=== PATIENT | male | born 1975 | race Caucasian/White ===

== ENCOUNTER 2020-10-16 13:45 | Emergency (ER) | payer BC, SELFPAY ==
--- NOTE | ~2020-10-16 | XR_ITS ---
XR ankle RT min 3V DATE: 10/16/2020 14:24 INDICATION: Right ankle pain for several weeks TECHNIQUE: 4 views COMPARISON: None FINDINGS: No fracture or dislocation of the ankle or disruption of the ankle mortise. No periosteal r eaction or bone destruction. IMPRESSION: No fracture or dislocation Reviewed, dictated and finalized at location A. IMPRESSION: No fracture or dislocation
[2020-10-16 13:58] VITALS: BP 132/78; PULSE 61; RESP 18; TEMP 36.8; O2SAT 100
--- NOTE | 2020-10-16 14:10 | ED.LOWEXIN ---
HPI - Extremity Injury (Lower) General Chief Complaint: Extremity Injury, Lower Stated Complaint: right ankle pain Time Seen by Provider: 10/16/20 14:10 Source: patient and family Mode of arrival: ambulatory History of Present Illness HPI Narrative: right ankle pain Related Data Home Medications Medication Instructions Recorded Confirmed adalimumab [Humira] 40 mg SUBCUT ONCE 10/16/20 10/16/20 Allergies Allergy/AdvReac Type Severity Reaction Status Date / Time No Known Allergies Allergy Verified 10/16/20 14:20 Review of Systems Review of Systems: Narrative: CONSTITUTIONAL: Denies fever, chills, or sweats. EYES: Denies visual changes, redness, or discharge. ENT: Denies rhinorrhea, congestion, sore throat, or otalgia. CARDIOVASCULAR: Denies chest pain, palpitations, or edema. RESPIRATORY: Denies cough or dyspnea. GASTROINTESTINAL: Denies abdominal pain, nausea, vomiting, or diarrhea. GENITOURINARY: Denies dysuria or hematuria. SKIN: Denies rash or itching. MUSCULOSKELETAL: Denies back pain, joint pain, or myalgia. NEUROLOGIC: Denies headache, numbness, or weakness. PSYCHIATRIC: Denies anxiety or depression. PMFSH Comments At time of signature, agree with nursing past medical, surgical, social and family history. There is no relevant family history pertinent to the presenting complaint Exam Narrative: Exam Narrative: GENERAL: Well-appearing, well-nourished, and in no acute distress. HEAD: Normocephalic, atraumatic. EYES: PERRLA and EOMI. ENT: Nares clear, no rhinorrhea or epistaxis. Mucous membranes moist. NECK: Supple. CHEST: Clear to auscultation. No respiratory distress. HEART: Regular rate and rhythm. No murmur heard. Normal peripheral pulses. ABDOMEN: Soft, nontender, nondistended, normal active bowel sounds. EXTREMITIES: Normal range of motion. No edema. ANKLE EXAM SKIN INTACT. NORMAL DP PULSE, NORMAL CAP REFILL. NORMAL SENSATION. SKIN: Warm, dry, no rash. NEURO: No focal deficits. Alert and oriented x3. Keo Coma Scale Eye Opening: Spontaneous 4 Keo Coma Scale Motor: Obeys Commands 6 Keo Coma Scale Verbal: Oriented 5 Keo Coma Scale Total 15 Course Vital Signs Vital signs: Vital Signs Temperature 36.8 C 10/16/20 13:58 Pulse Rate 61 10/16/20 13:58 Respiratory Rate 18 10/16/20 13:58 Blood Pressure 132/78 10/16/20 13:58 Pulse Oximetry 100 10/16/20 13:58 Temperature 36.8 C 10/16/20 13:58 Pulse Rate 61 10/16/20 13:58 Respiratory Rate 18 10/16/20 13:58 Blood Pressure 132/78 10/16/20 13:58 Pulse Oximetry 100 10/16/20 13:58 Please LEONID schedule a followup visit with your personal physician for further evaluation and treatment. Including recheck and discussion of your blood pressure. If your symptoms persist, change or worsen significantly before you can contact your personal physician then please, without delay, go to the emergency department for further evaluation MDM - Extremity Injury (Lower) Differential Diagnosis Differential diagnosis: Likely ankle sprain and strain, acute internal derangement of knee, fracture of femur, fracture of hip, fracture of toe and ankle fracture Lab Data Attestation: I reviewed the patient's lab results. Critical Care Time Critical Care Time Critical Care Time: No Discharge Plan Discharge Clinical Impression: Ankle sprain and strain Patient Disposition: Home, Self-Care Condition: Stable Instructions: Antibiotic Form, Ankle Sprain (ED), Ankle Sprain (DC) Additional Instructions: Ice to the area 20-30 minutes 4-6 times a day Elevate above heart Elastic wrap or orthopedic splint as directed for comfort for the next 5-7 days Tylenol for lesser pain Ibuprofen regularly for the next 2-3 days for the inflammation Follow-up with PCP if further problems or concerns -If you have any worsening of symptoms or any other concerns please go to the ED immediately. Prescriptions: No Action Humira 40 mg/0.8
== END 2020-10-16 14:50 | disposition home or self-care (01) ==
PROVIDERS: Emergency Provider Nurse Practitioner Family; PCP Internal Medicine
DX: S93.401A Sprain of unspecified ligament of right ankle, initial encounter (principal); S96.911A Strain of unspecified muscle and tendon at ankle and foot level, right foot, initial encounter; X58.XXXA Exposure to other specified factors, initial encounter; Z85.828 Personal history of other malignant neoplasm of skin
CPT/HCPCS: 73610; 99213; G0463

== ENCOUNTER 2023-03-10 14:21 | Emergency (ER) | payer BC, SELFPAY ==
--- NOTE | ~2023-03-10 | XR_ITS ---
EXAM: XR foot RT min 3V DATE: 03/10/2023 15:00 HISTORY: DROPPED A 30 LB WT. ONTOP OFF RT FOOT FEW DAYS AGO. . COMPARISON: None available. FINDINGS: Normal mineralization. Comminuted fracture of the right second metatarsal shaft, with 3 mm dorsal displacement and 15 degrees plantar angulation. No lytic or blastic lesion. Degenerative kovacs ge at the tibiotalar joint. Plantar and Achilles enthesopathy. No erosion or periosteal change. Foref oot soft tissue swelling. IMPRESSION: Mildly displaced and angulated, comminuted fracture of the right second metatarsal shaft. Reviewed, dictated and finalized at location K. DESK REPRESENTATIVE IMPRESSION: Mildly displaced and angulated, comminuted fracture of the right se cond metatarsal shaft.
[2023-03-10 14:40] VITALS: BP 131/81; PULSE 77; RESP 18; TEMP 36.9; O2SAT 99
--- NOTE | 2023-03-10 14:49 | ED.LOWEXIN ---
HPI - Extremity Injury (Lower) General Chief Complaint: Extremity Injury, Lower Stated Complaint: rt foot pain History of Present Illness HPI Narrative: PATIENT PRESENTS WITH RIGHT FOOT PAIN 3 DAYS AGO PATIENT DROPPED A WEIGHT ON HIS FOOT SWOLLEN AND DISCOLORED NO DEFORMITY NOTED NO OPEN AREAS NOTED Related Data Home Medications Medication Instructions Recorded Confirmed adalimumab 40 mg/0.8 mL See Rx Instructions .Route .COMPLEX 10/16/20 03/10/23 subcutaneous syringe kit (Humira) Allergies Allergy/AdvReac Type Severity Reaction Status Date / Time No Known Allergies Allergy Verified 03/10/23 14:47 Review of Systems Review of Systems: CONSTITUTIONAL: DENIES FEVER, CHILLS, OR SWEATS. EYES: DENIES VISUAL CHANGES, REDNESS, OR DISCHARGE. ENT: DENIES RHINORRHEA, CONGESTION, SORE THROAT, OR OTALGIA. CARDIOVASCULAR: DENIES CHEST PAIN, PALPITATIONS, OR EDEMA. RESPIRATORY: DENIES COUGH OR DYSPNEA. GASTROINTESTINAL: DENIES ABDOMINAL PAIN, NAUSEA, VOMITING, OR DIARRHEA. GENITOURINARY: DENIES DYSURIA OR HEMATURIA. SKIN: DENIES RASH OR ITCHING. MUSCULOSKELETAL: DENIES BACK PAIN, JOINT PAIN, OR MYALGIA. NEUROLOGIC: DENIES HEADACHE, NUMBNESS, OR WEAKNESS. PSYCHIATRIC: DENIES ANXIETY OR DEPRESSION. PMFSH Comments AT TIME OF SIGNATURE, AGREE WITH NURSING PAST MEDICAL, SURGICAL, SOCIAL AND FAMILY HISTORY. THERE IS NO RELEVANT FAMILY HISTORY PERTINENT TO THE PRESENTING COMPLAINT Exam Const: Other: GENERAL: WELL-APPEARING, WELL-NOURISHED, AND IN NO ACUTE DISTRESS. HEAD: NORMOCEPHALIC, ATRAUMATIC. EYES: PERRLA AND EOMI. ENT: NARES CLEAR, NO RHINORRHEA OR EPISTAXIS. MUCOUS MEMBRANES MOIST. NECK: SUPPLE. CHEST: CLEAR TO AUSCULTATION. NO RESPIRATORY DISTRESS. HEART: REGULAR RATE AND RHYTHM. NO MURMUR HEARD. NORMAL PERIPHERAL PULSES. ABDOMEN: SOFT, NONTENDER, NONDISTENDED, NORMAL ACTIVE BOWEL SOUNDS. EXTREMITIES: NORMAL RANGE OF MOTION. NO EDEMA. FOOT EXAM SKIN INTACT. NORMAL DP PULSE, NORMAL CAP REFILL. NORMAL SENSATION. SKIN: WARM, DRY, NO RASH. NEURO: NO FOCAL DEFICITS. ALERT AND ORIENTED X3. NELSON COMA SCALE EYE OPENING: SPONTANEOUS 4 NELSON COMA SCALE MOTOR: OBEYS COMMANDS 6 NELSON COMA SCALE VERBAL: ORIENTED 5 NELSON COMA SCALE TOTAL 15 Course Course Level of Care: Express Care Visit Discharge Plan Discharge Clinical Impression: Foot contusion, Foot fracture, right Patient Disposition: Home, Self-Care Condition: Stable Instructions: Foot Sprain (ED) Additional Instructions: ICE TO THE AREA 20-30 MINUTES 4-6 TIMES A DAY ELEVATE ABOVE HEART ELASTIC WRAP OR ORTHOPEDIC SPLINT DIRECTED FOR COMFORT FOR THE NEXT 5-7 DAYS FOLLOW UP WITH ORTHOPEDIC COMPENSATION VICE PRESIDENT DR GUILLAUME CRUTCHES DIRECTED IF NEEDED TYLENOL FOR LESSER PAIN IBUPROFEN REGULARLY FOR THE NEXT 2-3 DAYS FOR THE INFLAMMATION FOLLOW-UP WITH PCP IF FURTHER PROBLEMS OR CONCERNS -IF YOU HAVE ANY WORSENING OF SYMPTOMS OR ANY OTHER CONCERNS PLEASE GO TO THE ED IMMEDIATELY. Prescriptions: No Action Humira 40 mg/0.8 mL Syringe Kit See Rx Instructions .ROUTE .COMPLEX Rx Instructions: 40 mg subcutaneously every other week Follow-up/Referrals: Vijay Guillaume MD [Physician] - 1 Day (call office in am for follow up appointment) Shira,Kt Jurado MD [Primary Care Provider] - Stand Alone Forms: Work/School Release IP
== END 2023-03-10 15:30 | disposition home or self-care (01) ==
PROVIDERS: Emergency Provider Nurse Practitioner Family; PCP Internal Medicine
DX: S92.321A Displaced fracture of second metatarsal bone, right foot, initial encounter for closed fracture (principal); W20.8XXA Other cause of strike by thrown, projected or falling object, initial encounter; L40.9 Psoriasis, unspecified; Z85.820 Personal history of malignant melanoma of skin
CPT/HCPCS: 73630; 99214; G0463